=== PATIENT | female | born 1995 | race American Indian/Alaskan Native ===

== ENCOUNTER 2017-10-13 13:20 | Outpatient (CLI) | payer MEDICAID ==
[2017-10-13 14:14] LABS: Basophils % (Auto) 0.2 % (0.0-1.8); Hematocrit 39.6 % (30.3-42.9); Hemoglobin 13.2 gm/dl (10.1-14.3); Mean Corpuscular HGB Conc 33 % (30-34); Mean Corpuscular Hemoglobin 30 pg (28-32); Mean Corpuscular Volume 90 fl (79-97); Platelet Count 346 K/mm3 (140-440); Red Blood Count 4.38 M/mm3 (3.65-5.03); Red Cell Distribution Width 12.5 % (13.2-15.2); White Blood Count 6.7 K/mm3 (4.5-11.0)
[2017-10-13 14:29] LABS: Alanine Aminotransferase 18 units/L (7-56); Albumin 4.8 g/dL (3.9-5); Albumin/Globulin Ratio 1.3 %; Alkaline Phosphatase 95 units/L (35-129); Anion Gap 20 mmol/L; BUN/Creatinine Ratio 21; Blood Urea Nitrogen 15 mg/dL (7-17); Calcium 9.9 mg/dL (8.4-10.2); Carbon Dioxide 26 mmol/L (22-30); Chloride 96.9 mmol/L (98-107); Cholesterol 156 mg/dL (50-199); Glucose 80 mg/dL (65-100); HDL Cholesterol 95 mg/dL (40-59); LDL Cholesterol,Direct 54 mg/dL (50-130); Potassium 4.5 mmol/L (3.6-5.0); Sodium 138 mmol/L (137-145); Total Protein 8.6 g/dL (6.3-8.2); Triglycerides 37 mg/dL (2-149)
== END 2017-10-13 13:21 | disposition home or self-care (01) ==
LOC: LAB 13:20
PROVIDERS: ATTEND Psychiatry & Neurology Psychiatry
DX: F32.0 Major depressive disorder, single episode, mild (principal); F90.0 Attention-deficit hyperactivity disorder, predominantly inattentive type; F25.1 Schizoaffective disorder, depressive type; Z79.899 Other long term (current) drug therapy
CPT/HCPCS: 36415; 80053; 80061; 83036; 84146; 84439; 84443; 85025

== ENCOUNTER 2021-04-10 01:29 | Emergency (ER) | payer MEDICAID ==
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
[2021-04-10 05:32] LABS: Basophils % (Auto) 0.1 % (0.0-1.8); Eosinophils % (Auto) 0.2 % (0.0-4.3); Hematocrit 36.6 % (30.3-42.9); Hemoglobin 13.1 gm/dl (10.1-14.3); Lymphocytes # (Auto) 1.4 K/mm3 (1.2-5.4); Lymphocytes % (Auto) 26.6 % (13.4-35.0); Mean Corpuscular HGB Conc 36 % (30-34); Mean Corpuscular Volume 90 fl (79-97); Monocytes # (Auto) 0.6 K/mm3 (0.0-0.8); Monocytes % (Auto) 10.6 % (0.0-7.3); Platelet Count 279 K/mm3 (140-440); Red Blood Count 4.06 M/mm3 (3.65-5.03); Red Cell Distribution Width 12.8 % (13.2-15.2)
[2021-04-10 05:53] LABS: Alanine Aminotransferase 42 units/L (7-56); Albumin 4.3 g/dL (3.9-5); BUN/Creatinine Ratio 20; Blood Urea Nitrogen 16 mg/dL (7-17); Hemolysis Index 8
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
[2021-04-10] MEDS ORDERED: LORazepam 2 MG/ML VIAL IM ONE (11:20)
--- NOTE | 2021-04-10 11:49 | Event Note ---
Date: 04/10/21 S: "I am angry. I need my medicine." O: Vital signs stable. Patient calm and cooperative patient is pacing around the room, talking to herself in an aggressive manner. A: Bipolar disorder, schizophrenia, PTSD, ADHD, special needs P: IM Ativan ordered; 1013 recommended by psychiatry; awaiting inpatient psychiatric placement
[2021-04-10 23:36] LABS: Bacteria,Urine 1+ /HPF (Negative); Bilirubin,Urine NEG (Negative); Blood,Urine NEG (Negative); Color,Urine Yellow (Yellow); Mucus,Urine 3+ /HPF; Protein,Urine <15 mg/dL mg/dL (Negative)
[2021-04-10 23:40] LABS: Amphetamine Screen,Urine PRESUMPTIVE POSITIVE; Benzodiazepines Screen,Urine PRESUMPTIVE NEGATIVE; Cannabinoid Screen,Urine PRESUMPTIVE NEGATIVE; Cocaine Screen,Urine PRESUMPTIVE NEGATIVE; Methadone Screen,Urine PRESUMPTIVE NEGATIVE; Opiate Screen,Urine PRESUMPTIVE NEGATIVE
--- NOTE | 2021-04-11 11:20 | Event Note ---
Date: 04/11/21 S: Patient has no complaints O: Vital signs stable. Patient calm and cooperative. A: Bipolar disorder, schizophrenia, PTSD, ADHD P: 1013 rescinded and discharge recommended by psychiatry team
[2021-04-11] MEDS ORDERED: PERPHENAZINE 8 MG PO SCH (11:30)
[2021-04-11] MEDS ORDERED: LAMOTRIGINE 150 MG PO SCH (11:30)
[2021-04-11] MEDS: lamoTRIgine 25 MG TAB PO SCH (12:04)
[2021-04-11] MEDS: lamoTRIgine 100 MG TAB PO SCH (12:04)
[2021-04-11] MEDS: PERPHENAZINE 4 MG TAB PO SCH ×2 (14:30→22:01)
--- NOTE | 2021-04-11 14:49 | Progress Note ---
Subjective - Reason for Consult Consult date: 04/11/21 Reason for consult: MHE Requesting physician: DHARMESH BENSON III - Chief Complaint Chief complaint: Psych Progress Patient seen this a.m., patient states that she is not suicidal or feeling depressed anymore but she would like to be assisted with a long-term placement. REVIEW OF SYSTEMS Constitutional: Negative for weight loss ENT: Negative for stridor Respiratory: Negative for cough or hemoptysis All other systems reviewed and are negative MENTAL STATUS EXAMINATION General Appearance and Behavior: Age appropriate, good hygiene, wearing appropriate clothes, good eye contact, cooperative polite with questioning. Cooperation: Participating/engaged Psychomotor Behavior: unremarkable and within normal limits Mood: Good Affect and affective range: congruent with mood Thought Process: Fluent/Logical, Thought Content: Within reality, Speech: Normal volume, Regular rate and rhythm, Intellectual Functioning: Average Suicidal Ideation: Denies SI Homicidal Ideation: Denies HI Impulse Control: Unimpaired Insight and Judgment: Normal insight and judgment, Memory: Normal, Attention: Normal, Orientation: Alert, oriented, Assessment and Plan - Psychiatric problem (1) Schizoaffective disorder Current Visit: Yes Status: Acute F25.9 MEDICATIONS Defer to case management: Risks, benefits and alternatives of medications discussed with the patient, questions answered and consent obtained from patient. PSYCHOTHERAPY: Supportive psychotherapy provided MEDICAL: Per primary team DELIRIUM PRECAUTIONS: Please re-orient patient frequently, keep lights on during the day, and minimize benzodiazepines and opiates as these medications could worsen patient's confusion. PRODUCE TEAM MEMBER: DISPOSITION: Do not Recommend acute inpatient psychiatric hospitalization at this time. Case discussed with Dr. Lyles who agrees with current disposition LEGAL STATUS: 1013 rescinded FOLLOW-UP: Will sign off Thank you for the consult. Please contact with any questions and/or concerns. Mental Status Exam - Vital signs Last Vital Signs Temp 98.0 F 04/11/21 07:50 Pulse 69 04/11/21 07:50 Resp 18 04/11/21 07:50 BP 110/62 04/11/21 07:50 Pulse Ox 99 04/11/21 07:50 Assessment and Plan - Patient Problems (1) Schizoaffective disorder Current Visit: Yes Status: Acute
[2021-04-12] MEDS: PERPHENAZINE 4 MG TAB PO SCH (10:35)
[2021-04-12] MEDS: lamoTRIgine 25 MG TAB PO SCH (10:36)
[2021-04-12] MEDS: lamoTRIgine 100 MG TAB PO SCH (10:36)
[2021-04-12] MEDS: DEXTROAMPHETAMINE PO SCH (11:42)
[2021-04-12] MEDS: [UNRECOGNIZED DRUG - OTHER] PO SCH (11:42)
[2021-04-12] MEDS: AMPHETAMINE PO SCH (11:42)
--- NOTE | 2021-04-12 13:23 | Event Note ---
Date: 04/12/21 S: Patient has no complaints O: Vital signs stable. Patient calm and cooperative. A: Bipolar disorder, schizophrenia, PTSD, ADHD P: 1013 has been rescinded and patient awaiting discharge, pending case mgmt consult due to pt homeless needing housing assistance
[2021-04-13] MEDS: PERPHENAZINE 4 MG TAB PO SCH ×3 (10:36→22:39)
[2021-04-13] MEDS: lamoTRIgine 100 MG TAB PO SCH (10:36)
[2021-04-13] MEDS: lamoTRIgine 25 MG TAB PO SCH (10:37)
[2021-04-13] MEDS: DEXTROAMPHETAMINE PO SCH (11:35)
[2021-04-13] MEDS: [UNRECOGNIZED DRUG - OTHER] PO SCH (11:35)
[2021-04-13] MEDS: AMPHETAMINE PO SCH (11:35)
[2021-04-13] MEDS ORDERED: LORazepam 1 MG TAB PO ONE (13:20)
--- NOTE | 2021-04-13 13:22 | Event Note ---
Date: 04/13/21 ([id number]) Patient upset and crying stating that she wants to leave. Patient has not been cleared for discharge at this time. Nursing staff is asked for something to calm the patient down. Given Ativan 1 mg p.o.
[2021-04-13] MEDS ORDERED: LORazepam 2 MG/ML VIAL ONE (13:24)
[2021-04-13] MEDS ORDERED: LORazepam 2 MG/ML VIAL IM ONE (13:38)
[2021-04-14] MEDS ORDERED: ZIPRASIDONE MESYLATE 20 MG VIAL IM ONE ×2 (10:11→10:14)
[2021-04-14] MEDS ORDERED: WATER FOR INJ Sterile (PF) 10 ML ONE (10:11)
--- NOTE | 2021-04-14 10:14 | Event Note ---
Date: 04/14/21 1015 Patient is continued to be very agitated and is pacing back and forth crying. Patient will be given 10 mg IM Geodon. We are still waiting for final disposition.
[2021-04-14] MEDS: lamoTRIgine 25 MG TAB PO SCH (10:28)
[2021-04-14] MEDS: lamoTRIgine 100 MG TAB PO SCH (10:28)
[2021-04-14] MEDS: PERPHENAZINE 4 MG TAB PO SCH ×2 (10:29→22:25)
[2021-04-14] MEDS: METHYLPHENIDATE 5 MG TAB PO SCH (10:29)
[2021-04-14] MEDS: LORazepam 1 MG TAB PO SCH ×4 (14:18→22:29)
[2021-04-14] MEDS ORDERED: HALOPERIDOL LACTATE 5 MG/1 ML INJ IM ONE (14:32)
[2021-04-15 09:48] VITALS: BP 102/62
[2021-04-15] MEDS: LORazepam 1 MG TAB PO SCH ×2 (10:00→14:42)
[2021-04-15] MEDS: METHYLPHENIDATE 5 MG TAB PO SCH (10:47)
[2021-04-15] MEDS: lamoTRIgine 100 MG TAB PO SCH (10:47)
[2021-04-15] MEDS: PERPHENAZINE 4 MG TAB PO SCH (10:47)
[2021-04-15] MEDS: lamoTRIgine 25 MG TAB PO SCH (10:47)
--- NOTE | 2021-04-15 11:27 | Event Note ---
Date: 04/15/21 The patient was evaluated in the emergency department for symptoms described in the history of present illness. He/she was evaluated in the context of the global COVID-19 pandemic, which necessitated consideration that the patient might be at risk for infection with the virus that causes COVID-19. Institutional protocols and algorithms that pertain to the evaluation of patients at risk for COVID-19 are in a state of rapid change based on information released by regulatory bodies including the CDC and federal and state organizations. These policies and algorithms were followed during the patient's care in the emergency department. Please note that these policies, procedures and recommendations changed on a rapid basis. Patient resting comfortably in stretcher. She is in no acute distress. Pending placement. Vital signs, ER documentation, nursing documentation reviewed and appreciated. Patient is pending discharge at this time. Medically suitable for discharge at this time. Vital Signs 04/10/21 04/10/21 04/10/21 06:15 08:03 09:00 Temperature 97.8 F Pulse Rate 90 Respiratory 18 20 20 Rate Blood Pressure Blood Pressure 121/71 [Left] O2 Sat by Pulse 98 100 100 Oximetry 04/10/21 04/11/21 04/11/21 19:00 02:00 07:50 Temperature 97.7 F 97.8 F 98.0 F Pulse Rate 98 H 82 69 Respiratory 18 18 18 Rate Blood Pressure Blood Pressure 106/58 102/76 110/62 [Left] O2 Sat by Pulse 100 100 99 Oximetry 04/11/21 04/12/21 04/12/21 19:35 00:25 07:51 Temperature 97.6 F 98.0 F 97.9 F Pulse Rate 73 90 74 Respiratory 18 18 20 Rate Blood Pressure Blood Pressure 101/63 107/59 110/60 [Left] O2 Sat by Pulse 100 98 100 Oximetry 04/12/21 04/12/21 04/12/21 13:00 19:00 20:32 Temperature 98.2 F 98.4 F Pulse Rate 72 89 Respiratory 16 18 17 Rate Blood Pressure 107/60 Blood Pressure 105/59 [Left] O2 Sat by Pulse 100 99 Oximetry 04/13/21 04/13/21 04/13/21 08:54 20:21 20:44 Temperature 98.6 F 98.4 F Pulse Rate 74 77 Respiratory 20 18 16 Rate Blood Pressure Blood Pressure 101/47 100/59 [Left] O2 Sat by Pulse 100 98 100 Oximetry 04/14/21 04/14/21 04/14/21 02:03 11:06 20:08 Temperature 98.0 F 98.6 F 98.6 F Pulse Rate 78 100 H 96 H Respiratory 16 20 18 Rate Blood Pressure Blood Pressure 103/59 104/63 119/71 [Left] O2 Sat by Pulse 98 100 100 Oximetry 04/14/21 04/15/21 04/15/21 21:37 02:23 09:46 Temperature 98.5 F 97.6 F Pulse Rate 82 92 H Respiratory 18 18 20 Rate Blood Pressure Blood Pressure 97/52 102/62 [Left] O2 Sat by Pulse 100 96 Oximetry Lab Results 04/10/21 04/10/21 04/10/21 Range/Units 05:12 05:12 05:12 WBC 5.2 (4.5-11.0) K/mm3 RBC 4.06 (3.65-5.03) M/mm3 Hgb 13.1 (10.1-14.3) gm/dl Hct 36.6 (30.3-42.9) % MCV 90 (79-97) fl MCH 32 (28-32) pg MCHC 36 H (30-34) % RDW 12.8 L (13.2-15.2) % Plt Count 279 (140-440) K/mm3 Lymph % (Auto) 26.6 (13.4-35.0) % [place] % (Auto) 10.6 H (0.0-7.3) % Eos % (Auto) 0.2 (0.0-4.3) % Baso % (Auto) 0.1 (0.0-1.8) % Lymph # (Auto) 1.4 (1.2-5.4) K/mm3 [place] # (Auto) 0.6 (0.0-0.8) K/mm3 Eos # (Auto) 0.0 (0.0-0.4) K/mm3 Baso # (Auto) 0.0 (0.0-0.1) K/mm3 Seg Neutrophils % 62.5 (40.0-70.0) % Seg Neutrophils # 3.3 (1.8-7.7) K/mm3 Sodium 136 L (137-145) mmol/L Potassium 3.7 (3.6-5.0) mmol/L Chloride 100.0 (98-107) mmol/L Carbon Dioxide 26 (22-30) mmol/L Anion Gap 14 mmol/L BUN 16 (7-17) mg/dL Creatinine 0.8 (0.6-1.2) mg/dL Estimated GFR > 60 ml/min BUN/Creatinine Ratio 20 % Glucose 83 (65-100) mg/dL Calcium 9.0 (8.4-10.2) mg/dL Total Bilirubin 0.40 (0.1-1.2) mg/dL AST 35 (5-40) units/L ALT 42 (7-56) units/L Alkaline Phosphatase 83 (35-129) units/L Total Protein 7.3 (6.3-8.2) g/dL Albumin 4.3 (3.9-5) g/dL Albumin/Globulin Ratio 1.4 % HCG, Qual (Negative) Urine Color (Yellow) Urine Turbidity (Clear) Urine pH (5.0-7.0) Ur Specific [place] (1.003-1.030) Urine Protein (Negative) mg/dL Urine Glucose (UA) (Negative) mg/dL Urine Ketones (Negative) mg/dL Urine Blood (Negative) Urine Nitrite (Negative) Urine Bilirubin (Negative) Urine Urobilinogen (<2.0) mg/dL Ur Leukocyte Esterase (Negative) Urine WBC (Auto) (0.0-6.0) /HPF Urine RBC (Auto) (0.0-6.0) /HPF U Epithel Cells (Auto) (0-13.0) /HPF Urine Bacteria (Auto) (Negative) /HPF Urine Mucus /HPF Salicylates < 0.3 L (2.8-20.0) mg/dL Urine Opiates Screen Urine Methadone Screen Acetaminophen (10.0-30.0) ug/mL Ur Barbiturates Screen Ur Phencyclidine Scrn Ur Amphetamines Screen U Benzodiazepines Scrn Urine Cocaine Screen U Marijuana (THC) Screen Drugs of Abuse Note Plasma/Serum Alcohol (0-0.07) % Coronavirus (PCR) (Negative) 04/10/21 04/10/21 04/10/21 Range/Units 05:12 05:12 05:12 WBC (4.5-11.0) K/mm3 RBC (3.65-5.03) M/mm3 Hgb (10.1-14.3) gm/dl Hct (30.3-42.9) % MCV (79-97) fl MCH (28-32) pg MCHC (30-34) % RDW (13.2-15.2) % Plt Count (140-440) K/mm3 Lymph % (Auto) (13.4-35.0) % [place] % (Auto) (0.0-7.3) % Eos % (Auto) (0.0-4.3) % Baso % (Auto) (0.0-1.8) % Lymph # (Auto) (1.2-5.4) K/mm3 [place] # (Auto) (0.0-0.8) K/mm3 Eos # (Auto) (0.0-0.4) K/mm3 Baso # (Auto) (0.0-0.1) K/mm3 Seg Neutrophils % (40.0-70.0) % Seg Neutrophils # (1.8-7.7) K/mm3 Sodium (137-145) mmol/L Potassium (3.6-5.0) mmol/L Chloride (98-107) mmol/L Carbon Dioxide (22-30) mmol/L Anion Gap mmol/L BUN (7-17) mg/dL Creatinine (0.6-1.2) mg/dL Estimated GFR ml/min BUN/Creatinine Ratio % Glucose (65-100) mg/dL Calcium (8.4-10.2) mg/dL Total Bilirubin (0.1-1.2) mg/dL AST (5-40) units/L ALT (7-56) units/L Alkaline Phosphatase (35-129) units/L Total Protein (6.3-8.2) g/dL Albumin (3.9-5) g/dL Albumin/Globulin Ratio % HCG, Qual Negative (Negative) Urine Color (Yellow) Urine Turbidity (Clear) Urine pH (5.0-7.0) Ur Specific [place] (1.003-1.030) Urine Protein (Negative) mg/dL Urine Glucose (UA) (Negative) mg/dL Urine Ketones (Negative) mg/dL Urine Blood (Negative) Urine Nitrite (Negative) Urine Bilirubin (Negative) Urine Urobilinogen (<2.0) mg/dL Ur Leukocyte Esterase (Negative) Urine WBC (Auto) (0.0-6.0) /HPF Urine RBC (Auto) (0.0-6.0) /HPF U Epithel Cells (Auto) (0-13.0) /HPF Urine Bacteria (Auto) (Negative) /HPF Urine Mucus /HPF Salicylates (2.8-20.0) mg/dL Urine Opiates Screen Urine Methadone Screen Acetaminophen 5.0 L (10.0-30.0) ug/mL Ur Barbiturates Screen Ur Phencyclidine Scrn Ur Amphetamines Screen U Benzodiazepines Scrn Urine Cocaine Screen U Marijuana (THC) Screen Drugs of Abuse Note Plasma/Serum Alcohol < 0.01 (0-0.07) % Coronavirus (PCR) (Negative) 04/10/21 04/10/21 04/10/21 Range/Units 23:20 23:20 Unknown WBC (4.5-11.0) K/mm3 RBC (3.65-5.03) M/mm3 Hgb (10.1-14.3) gm/dl Hct (30.3-42.9) % MCV (79-97) fl MCH (28-32) pg MCHC (30-34) % RDW (13.2-15.2) % Plt Count (140-440) K/mm3 Lymph % (Auto) (13.4-35.0) % [place] % (Auto) (0.0-7.3) % Eos % (Auto) (0.0-4.3) % Baso % (Auto) (0.0-1.8) % Lymph # (Auto) (1.2-5.4) K/mm3 [place] # (Auto) (0.0-0.8) K/mm3 Eos # (Auto) (0.0-0.4) K/mm3 Baso # (Auto) (0.0-0.1) K/mm3 Seg Neutrophils % (40.0-70.0) % Seg Neutrophils # (1.8-7.7) K/mm3 Sodium (137-145) mmol/L Potassium (3.6-5.0) mmol/L Chloride (98-107) mmol/L Carbon Dioxide (22-30) mmol/L Anion Gap mmol/L BUN (7-17) mg/dL Creatinine (0.6-1.2) mg/dL Estimated GFR ml/min BUN/Creatinine Ratio % Glucose (65-100) mg/dL Calcium (8.4-10.2) mg/dL Total Bilirubin (0.1-1.2) mg/dL AST (5-40) units/L ALT (7-56) units/L Alkaline Phosphatase (35-129) units/L Total Protein (6.3-8.2) g/dL Albumin (3.9-5) g/dL Albumin/Globulin Ratio % HCG, Qual (Negative) Urine Color Yellow (Yellow) Urine Turbidity Clear (Clear) Urine pH 6.0 (5.0-7.0) Ur Specific [place] 1.027 (1.003-1.030) Urine Protein <15 mg/dl (Negative) mg/dL Urine Glucose (UA) Neg (Negative) mg/dL Urine Ketones Neg (Negative) mg/dL Urine Blood Neg (Negative) Urine Nitrite Neg (Negative) Urine Bilirubin Neg (Negative) Urine Urobilinogen 4.0 (<2.0) mg/dL Ur Leukocyte Esterase Neg (Negative) Urine WBC (Auto) 2.0 (0.0-6.0) /HPF Urine RBC (Auto) 6.0 (0.0-6.0) /HPF U Epithel Cells (Auto) 6.0 (0-13.0) /HPF Urine Bacteria (Auto) 1+ (Negative) /HPF Urine Mucus 3+ /HPF Salicylates (2.8-20.0) mg/dL Urine Opiates Screen Presumptive negative Urine Methadone Screen Presumptive negative Acetaminophen (10.0-30.0) ug/mL Ur Barbiturates Screen Presumptive negative Ur Phencyclidine Scrn Presumptive negative Ur Amphetamines Screen Presumptive positive U Benzodiazepines Scrn Presumptive negative Urine Cocaine Screen Presumptive negative U Marijuana (THC) Screen Presumptive negative Drugs of Abuse Note Disclamer Plasma/Serum Alcohol (0-0.07) % Coronavirus (PCR) Negative (Negative)
== END 2021-04-15 17:35 | disposition home or self-care (01) ==
LOC: EEVIPCON 01:29 → ED 01:29
DX: F25.0 Schizoaffective disorder, bipolar type (principal); R45.851 Suicidal ideations; Z20.822 Contact with and (suspected) exposure to COVID-19; Z79.899 Other long term (current) drug therapy; Z88.8 Allergy status to other drugs, medicaments and biological substances
CPT/HCPCS: 36415; 80053; 80307; 81001; 84703; 85025; 96372; 99284; J1630; J2060; J3486; U0003; 80320; G0480